=== PATIENT | male | born 1975 | race Hispanic/Latino ===

== ENCOUNTER 2018-10-21 16:42 | Inpatient (IN) | payer OTHER ==
[~2018-10-21] VITALS: Ht 175.3 cm; Wt 108.9 kg
[2018-10-21 16:57] LABS: BASOPHILS % (AUTO) 0.3 % (0.0-5.0); EOSINOPHILS % (AUTO) 0.5 % (0.0-8.0); HEMATOCRIT 47.3 % (42-54); LYMPHOCYTES % (AUTO) 30.8 % (21.0-51.0); MEAN CORPUSCULAR HEMOGLOBIN 30.1 pg (27.0-33.0); MEAN CORPUSCULAR VOLUME 88.3 fL (79-99); MONOCYTES % (AUTO) 5.4 % (3.0-13.0); NUCLEATED RED BLOOD CELLS 0.1 % (0.0-0.19); PLATELET COUNT (AUTO) 180 K/uL (130-400); RED BLOOD CELL COUNT(AUTO) 5.35 MIL/uL (4.50-6.20); RED CELL DISTRIBUTION WIDTH 13.8 % (11.0-15.5); WHITE BLOOD COUNT (AUTO) 5.8 K/uL (4.8-10.8)
[2018-10-21] MEDS ORDERED: NITROGLYCERIN 1GM/1 INCH PACKET TD ONE (16:59)
[2018-10-21] MEDS ORDERED: ASPIRIN 325 MG TABLET ONE (16:59)
[2018-10-21 17:10] LABS: INR 0.98 (0.85-1.15); PROTHROMBIN TIME 10.3 SEC (9.6-11.6)
[2018-10-21 17:12] LABS: CREATININE 0.9 mg/dL (0.5-1.5); POTASSIUM 3.9 mmol/L (3.5-5.1)
[2018-10-21 17:16] LABS: ALBUMIN 4.1 g/dL (3.5-5.0); BILIRUBIN,TOTAL 0.4 mg/dL (0.2-1.0)
[2018-10-21 17:57] LABS: APPEARANCE,URINE Clear (CLEAR); BILIRUBIN,URINE Negative (NEGATIVE); COLOR,URINE Yellow (YELLOW); GLUCOSE, URINE (UA) Negative (NEGATIVE); KETONES,URINE Negative (NEGATIVE); LEUKOCYTE ESTERASE ,URINE Negative (NEGATIVE); NITRATE,URINE Negative (NEGATIVE); OCCULT BLOOD,URINE Moderate (NEGATIVE); PROTEIN,URINE Negative (NEGATIVE); UROBILINOGEN,URINE 0.2 mg/dL (0.2-1.0)
[2018-10-21 18:04] LABS: AMPHET/METH SCREEN,URINE NEGATIVE (NEGATIVE); BARBITURATE SCREEN, URINE NEGATIVE (NEGATIVE); BENZODIAZEPINES SCREEN,URINE NEGATIVE (NEGATIVE); CANNABINOID SCREEN,URINE NEGATIVE (NEGATIVE); COCAINE SCREEN,URINE POSITIVE (NEGATIVE); OPIATE SCREEN,URINE POSITIVE (NEGATIVE); PHENCYCLIDINE SCREEN,URINE NEGATIVE (NEGATIVE)
[2018-10-21 18:11] LABS: BACTERIA,URINE None Seen /HPF (None Seen); RBC,URINE 0-1 /HPF (0-1); SQUAMOUS EPITHELIAL CELL,UR None Seen /HPF (0-2); WBC,URINE None Seen /HPF (0-1)
[2018-10-21] MEDS ORDERED: MORPHINE SULFATE 4 MG/1ML SYG ONE (18:22)
[2018-10-21] MEDS ORDERED: ONDANSETRON HCL 4 MG/2 ML VIAL ONE (18:23)
[2018-10-21] MEDS ORDERED: LORAZEPAM 1 MG TABLET PO PRN (20:30)
[2018-10-21] MEDS ORDERED: MORPHINE SULFATE 2 MG/ML 1ML SYG IV PRN (20:30)
[2018-10-21] MEDS: NITROGLYCERIN 1GM/1 INCH PACKET TD SCH (20:30)
[2018-10-21] MEDS ORDERED: ACETAMINOPHEN 325 MG TAB PO PRN ×2 (20:30)
[2018-10-21] MEDS ORDERED: ONDANSETRON HCL 4 MG/2 ML VIAL IV PRN (20:30)
[2018-10-21] MEDS ORDERED: MORPHINE SULFATE 4 MG/1ML SYG IV PRN (20:30)
[2018-10-21] MEDS ORDERED: FAMOTIDINE/PF 20 MG/2 ML VIAL IV SCH (21:00)
[2018-10-21] MEDS ORDERED: METOPROLOL TARTRATE 25 MG TAB PO SCH (21:00)
--- NOTE | 2018-10-21 21:00 | NUR ---
RADIOLOGY PT JUST ARRIVED ON THE FLOOR, AAOX3. NO DISTRESS NOTED. [employer] IS IN TO TAKE HIM DOWN FOR VQ SCAN.
--- NOTE | 2018-10-21 22:20 | NUR ---
ADMIT PT ADMITTED TO ROOM 412,AAOX3. CLAIMS OF PAINS ON LEFT CHEST AREA. V/S MONITORED BY PCP,STABLE. TELE MONITOR REPORT SINUS RHYTHM ON THE 60'S HR. PLACED IN BED COMFORTABLY. ADMISSION DATA BASE COMPLETED. DUE MEDS ADMINISTERED. PT REFUSED LOVENOX AT THIS TIME. MED OPENED WASTED. EXPLAINED THE NEED OF ANTICOAGULANT TO HIS CASE OF ADMISSION AND PT UNDERSTOOD THEN CHANGED HIS MIND CLAIMED HE WANTED LOVENOX TO BENTLEY GIVEN. WILL MEDICATE PT. SCD'S APPLIED TO BLE. RE-ITERATED FALL PRECAUTIONS DUE TO MORPHINE. PT VERBALIZES UNDERSTANDING. ORIENTED TO ROOM AND UNIT. IN FOR MORE CARE AND MANAGEMENT. Addendum: 10/21/18 at 2323 by GIAN BOONE RN RN Amended: Links added.
[2018-10-21] MEDS: ENOXAPARIN SODIUM 30 MG/0.3 ML SQ SCH ×2 (22:25→22:50)
[2018-10-21 22:27] VITALS: BP 125/67
[2018-10-22 00:22] VITALS: BP 121/60
--- NOTE | 2018-10-22 02:00 | NUR ---
ROUNDS PT RESTING WELL, FAIRLY ASLEEP WITH RESPIRATIONS EVEN AND UNLABORED. NO DISTRESS NOTED. KEPT UNDISTURBED FOR NOW. WILL MONITOR PT.
[2018-10-22] MEDS: NITROGLYCERIN 1GM/1 INCH PACKET TD SCH (03:50)
[2018-10-22 04:00] VITALS: BP 137/54
--- NOTE | 2018-10-22 07:10 | NUR ---
MD DR TORRES IN TO MAKE ROUNDS. STATED HE WILL D/C PT TODAY.
[2018-10-22] MEDS ORDERED: AMLO5TAB4 PO (07:16)
[2018-10-22] MEDS ORDERED: AEC81 PO (07:16)
[2018-10-22 08:00] VITALS: BP 122/68
--- NOTE | 2018-10-22 08:07 | NUR ---
D/C DISCHARGE PAPERS AND DISCHARGE INSTRUCTIONS GIVEN TO PT. D/C TELE MONITOR. D/C PIV WITH CATHETER INTACT. PCP MADE AWARE THAT PT IS DISCHARGED AND READY TO BE ESCORTED OUT. Addendum: 10/22/18 at 0831 by GINA BOONE RN RN Amended: Links added.
[2018-10-22] MEDS ORDERED: ASPIRIN 325 MG TABLET PO SCH (09:00)
[2018-10-22] MEDS ORDERED: AMLODIPINE BESYLATE 5 MG TAB PO SCH (09:00)
--- NOTE | 2018-10-22 09:14 | NUR ---
DC PLAN PATIENT DISCHARGED HOME ALREADY GONE. NO NEEDS VERBALIZED BY NURSING STAFF. Addendum: 10/22/18 at 0915 by YESSENIA HOWARD RN CM Amended: Links added.
== END 2018-10-22 08:45 | disposition home or self-care (01) | DRG 313 ==
LOC: EDH 16:42 → EDHIP 16:43 → UNDOADMIN 19:05 → 4BH 19:51
PROVIDERS: ADMIT Hospitalist; ATTEND Hospitalist
DX: R07.89 Other chest pain (principal); F14.10 Cocaine abuse, uncomplicated; F17.200 Nicotine dependence, unspecified, uncomplicated; T40.5X5A Adverse effect of cocaine, initial encounter; Y92.89 Other specified places as the place of occurrence of the external cause; Z71.6 Tobacco abuse counseling; Z71.51 Drug abuse counseling and surveillance of drug abuser; Z88.6 Allergy status to analgesic agent; Z88.0 Allergy status to penicillin; Z88.8 Allergy status to other drugs, medicaments and biological substances
CPT/HCPCS: 36415; 71045; 78582; 80053; 80305; 81001; 82550; 84484; 85025; 85378; 85610; 85730; 93005; 99291; A9540; A9558; G0378; J1650; J2270; J2405; J3490